=== PATIENT | female | born 1950 | race Caucasian/White ===

== ENCOUNTER → 2016-11-01 | Outpatient (CLI) | payer MEDICARE, BC ==
[~2016-11-01] MED LIST: ARANESP200 MCG/1 IM; ASPIR 8181 MG PO; CALCIUM ACETAT667 MG PO; CARDIZEM CD)(T180 MG PO; COREG25 MG PO; COZAAR25 MG PO; CRESTOR10 MG PO; DELTASONE5 MG PO; FEMARA 2.5 MG2.5 MG PO; LASIX80 MG PO; NEURONTIN100 MG PO; NORCO 5-325 MG1 TAB PO; NORCO 5-325 TA1 EACH; NORVASC5 MG PO; OXYGEN M-15 INH; PHOSLO667 MG PO; PROGRAF 1MG CAPS1 MG PO; ROCALTROL0.25 MCG PO; SODIUM BICARBO650 MG PO; SYMBICORT 16010.2 GM INH; VITAMIN D35000 UNI1 PO; ZANTAC (NON-FO150 MG PO
== END | disposition disaster alternative care site (69) ==
LOC: LGSMG 16:05
DX: N18.9 Chronic kidney disease, unspecified (principal); Z92.29 Personal history of other drug therapy

== ENCOUNTER → 2017-02-14 | Outpatient (CLI) | payer MEDICARE, BC ==
[2017-02-14 15:55] LABS: BASOPHIL % 0.4 %; EOSINOPHIL # 0.1 K/uL (0.0-0.5); EOSINOPHIL % 1.5 %; HEMATOCRIT 34.5 % (33.0-46.0); HEMOGLOBIN 11.2 g/dL (10.0-15.0); IMMATURE GRANULOCYTE % 0.2 %; LYMPHOCYTE # 1.2 K/uL (0.8-4.0); LYMPHOCYTE % 21.4 %; MCH 34.8 pg (27.0-34.0); MCHC 32.5 gm/dL (32.0-36.5); MCV 107.1 fl (83.0-98.0); MONOCYTE # 0.3 K/uL (0.0-1.0); MONOCYTE % 5.1 %; MPV 11.4 fl (9.4-12.4); NEUTROPHIL # (ANC) 3.9 K/uL (1.8-7.8); NEUTROPHIL % 71.4 %; NRBC % 0 /100WBC (0-0.00); PLATELET COUNT 117 K/uL (150-450); RBC 3.22 M/uL (3.50-5.50); RDW-CV 16.8 % (11.9-14.6); WBC 5.5 K/uL (4.0-11.0)
[2017-02-14 16:03] LABS: INR - (THERAPEUTIC) 1.01 (0.92-1.07); PROTIME 10.6 SECONDS (9.8-11.4)
[2017-02-14 16:08] LABS: ALBUMIN 3.8 gm/dL (3.5-5.0); ANION GAP 9.6 (10.0-19.0); CALCIUM 9.7 mg/dL (8.5-10.5); PHOSPHORUS 2.7 mg/dL (2.5-4.9); POTASSIUM 4.6 mMol/L (3.7-5.1)
[2017-02-14 16:10] LABS: CREATININE 5.4 mg/dL (0.5-1.1)
== END | disposition disaster alternative care site (69) ==
LOC: GOPD 02-13
PROVIDERS: Internal Medicine Nephrology
PROC: 05HM33Z Insertion of Infusion Device into Right Internal Jugular Vein, Percutaneous Approach (ICD-10-PCS; principal; 2017-02-14)
PROC: B513YZA Fluoroscopy of Right Jugular Veins using Other Contrast, Guidance (ICD-10-PCS; 2017-02-14)
DX: T82.590A Other mechanical complication of surgically created arteriovenous fistula, initial encounter (principal)
CPT/HCPCS: C1750; C1769; J1642; J1644; J2001; J2250; J3010; J3370; J7030

== ENCOUNTER → 2017-02-21 | Day surgery (SDC) | payer MEDICARE, BC ==
[~2017-02-21] VITALS: Ht 172.7 cm; Wt 63.9 kg
--- NOTE | ~2017-02-21 | OR ---
PATIENT'S NAME: GLENROY BRADSHAW [facility] AGE: 66 Y [address] ROOM: [place] [address] [place]: [facility] [place] ADMIT DATE: 02/21/2017 OR/Procedure Report DISCHARGE DATE: FAMILY PHYSICIAN: Chase Holder MD ATTENDING PHYSICIAN: BENJAMÍN MONCADA SURGEON: Benjamín Moncada MD BODY SHOP WORKER: DATE OF PROCEDURE: 02/21/2017 PREOPERATIVE DIAGNOSIS: End-stage renal disease. POSTOPERATIVE DIAGNOSIS: End-stage renal disease. PROCEDURE: Left arm radiocephalic fistula ligation, new left brachiocephalic AV fistula creation. DUMP GRADER: CHRIS Small. ANESTHESIA: General. ESTIMATED BLOOD LOSS: 5 mL. OPERATIVE FINDINGS: Good thrill and bruit in the brachiocephalic fistula. No further flow in radiocephalic fistula and strong radial and ulnar signal at the end of the case. DESCRIPTION OF PROCEDURE: The patient was brought to operating room placed supine on the operative table. Prepped and draped in a sterile manner. Preoperative time-out was performed. The patient received preoperative antibiotics. We made the incision of the risks in a transverse fashion, dissected down to find the cephalic outflow vein into the fistula. We dissected in a 360-degree fashion. We then proceeded ligated with a single Prolene tie. There was no further flow in the fistula. We closed that wound with a running 4-0 Monocryl. We then made a standard incision 2 cm proximal to the antecubital fossa dissected down the fascia, incised the fascia in a longitudinal manner. Dissected out the brachial artery. We then dissected out the cephalic vein and then transected it distally with a silk tie for ligation. We gave 5000 units of heparin. We clamped proximal and distal artery, made arteriotomy to size of 4 mm and then did a standard 6-0 Prolene anastomosis from the vein to the artery. We removed the clamps. There was excellent flow in the fistula with a good bruit which was confirmed the use of Doppler. There was a strong radial and ulnar signal at the end of the case. Heparin was given before clamping which was reversed with protamine. Hemostasis was achieved. Deep layers were closed with 2-0 and 3-0 Vicryl. Skin was closed with running 4-0 Monocryl. The patient tolerated the PATIENT'S NAME: GLENROY BRADSHAW [facility] AGE: 66 Y [address] ROOM: [place] [address] [place]: [facility] [place] ADMIT DATE: 02/21/2017 OR/Procedure Report DISCHARGE DATE: FAMILY PHYSICIAN: Chase Holder MD ATTENDING PHYSICIAN: BENJAMÍN MONCADA procedure well and transferred to recovery room and home later that day. BENJAMÍN MONCADA MD FKM/modl /[id number] d: 02/21/17 1816 t: 02/24/17 0959, OPERATIVE SUMMARY
[2017-02-21 08:31] LABS: BASOPHIL % 0.6 %; EOSINOPHIL # 0.1 K/uL (0.0-0.5); EOSINOPHIL % 2.3 %; HEMATOCRIT 37.4 % (33.0-46.0); HEMOGLOBIN 13.2 g/dL (10.0-15.0); IMMATURE GRANULOCYTE % 0.2 %; LYMPHOCYTE # 1.5 K/uL (0.8-4.0); LYMPHOCYTE % 27.7 %; MCH 37.6 pg (27.0-34.0); MCHC 35.3 gm/dL (32.0-36.5); MCV 106.6 fl (83.0-98.0); MONOCYTE # 0.5 K/uL (0.0-1.0); NEUTROPHIL # (ANC) 3.1 K/uL (1.8-7.8); NEUTROPHIL % 59.2 %; NRBC % 0 /100WBC (0-0.00); RBC 3.51 M/uL (3.50-5.50); RDW-CV 16.6 % (11.9-14.6); WBC 5.3 K/uL (4.0-11.0)
[2017-02-21 08:33] LABS: PLATELET COUNT 158 K/uL (150-450)
[2017-02-21 08:45] LABS: ALBUMIN 4.4 gm/dL (3.5-5.0); ANION GAP 11.1 (10.0-19.0); CALCIUM 9.9 mg/dL (8.5-10.5); POTASSIUM 4.1 mMol/L (3.7-5.1); TOTAL BILIRUBIN 0.6 mg/dL (0.0-1.5); TOTAL PROTEIN 8.5 g/dL (6.0-8.4)
[2017-02-21 08:48] LABS: CREATININE 5.2 mg/dL (0.5-1.1)
== END | disposition disaster alternative care site (69) ==
LOC: GPOC 02-15 14:00 → GSDC 07:32
PROVIDERS: Surgery Vascular Surgery
PROC: 05LF0ZZ Occlusion of Left Cephalic Vein, Open Approach (ICD-10-PCS; principal; 2017-02-21)
PROC: 031809D Bypass Left Brachial Artery to Upper Arm Vein with Autologous Venous Tissue, Open Approach (ICD-10-PCS; 2017-02-21)
DX: E11.22 Type 2 diabetes mellitus with diabetic chronic kidney disease (principal); I12.0 Hypertensive chronic kidney disease with stage 5 chronic kidney disease or end stage renal disease; N18.6 End stage renal disease; M19.90 Unspecified osteoarthritis, unspecified site; K21.9 Gastro-esophageal reflux disease without esophagitis; F41.9 Anxiety disorder, unspecified; D64.9 Anemia, unspecified; Z94.83 Pancreas transplant status; Z85.038 Personal history of other malignant neoplasm of large intestine; Z85.3 Personal history of malignant neoplasm of breast; Z85.828 Personal history of other malignant neoplasm of skin; Z98.41 Cataract extraction status, right eye; Z98.42 Cataract extraction status, left eye; Z98.890 Other specified postprocedural states; Z79.82 Long term (current) use of aspirin; Z79.899 Other long term (current) drug therapy; Z88.5 Allergy status to narcotic agent; Z91.011 Allergy to milk products
CPT/HCPCS: J0690; J1644; J2001; J2720; J3010; J7030

== ENCOUNTER → 2017-02-27 | Outpatient (CLI) | payer MEDICARE, BC ==
--- NOTE | ~2017-02-27 | ENPV ---
Carotid Duplex Study Demographics Patient Name GLENROY BRADSHAW Date of Study 02/27/2017 Patient Number [id number] Gender Female Date of 1950 Age 66 Visit Number [id number] Height Accession Number [id number] Weight Room Number BSA BMI Referring chantal Chase Butts MD Physician Physician Physician Ordering Physician dede Licona MD Felt Hooker Arden King BS, RT Conclusions Summary The right internal carotid artery has moderate, 40-59%, plaque and stenosis. The right vertebral artery is present with antegrade flow. The left internal carotid artery has moderate, 40-59%, plaque and stenosis. The left vertebral artery is present with antegrade flow. Heterogenous calcific plaque at the bulb, proximal ICA, proximal ECA, and CCA arteries bilaterally. Procedure Type of Study: Cerebral:Carotid, Carotid Doppler Bilateral. Indications for Study:Carotid Bruit. Additional Indications:falls Patient Status:Routine. Study Location:Vascular Lab. Technical Quality:Adequate visualization. Velocities are measured in cm/s ; Diameters are measured in cm Carotid Right Measurements Carotid Left Measurements + +--------+--------+ + + + +--------+ --------+ + + !Location !PSV !EDV !Angle !%Stenosis ! !Location !PSV ! EDV !Angle !%Stenosis ! + +--------+--------+ + + + +--------+ --------+ + + !Prox CCA !105 !8 !60 ! ! !Prox CCA !138 ! 11 !60 ! ! + +--------+--------+ + + + +--------+ --------+ + + !Dist CCA !89 !9 !60 ! ! !Dist CCA !137 ! 11 !60 ! ! + +--------+--------+ + + + +--------+ --------+ + + !Prox ICA !130 !14 !60 ! ! !Prox ICA !87 ! 8 !60 ! ! + +--------+--------+ + + + +--------+ --------+ + + !Dist ICA !114 !24 !60 ! ! !Dist ICA !118 ! 21 !60 ! ! + +--------+--------+ + + + +--------+ --------+ + + !Prox ECA !262 ! !60 ! ! !Prox ECA !157 ! !60 ! ! + +--------+--------+ + + + +--------+ --------+ + + !Vertebral !85 ! !60 ! ! !Vertebral !60 ! !60 ! ! + +--------+--------+ + + + +--------+ --------+ + + !Subclavian !174 ! !60 ! ! !Subclavian !347 ! !60 ! ! + +--------+--------+ + + + +--------+ --------+ + + - There is antegrade vertebral flow noted on the right side. - There is antegrade verte bral flow noted on the left side. - Add'l Measurements:ICAPSV/CCAPSV 1.24.ICAEDV/CCAEDV 3.1. - Add'l Measurements:ICAPS V/CCAPSV 0.86.ICAEDV/CCAEDV 1.98. Signature dtt: JAYSHREE BHAT dtd: 02/27/17 1054 Physician Self Edit
== END | disposition disaster alternative care site (69) ==
LOC: GCAR 10:50
DX: N18.6 End stage renal disease (principal); R09.89 Other specified symptoms and signs involving the circulatory and respiratory systems; R29.6 Repeated falls; I65.23 Occlusion and stenosis of bilateral carotid arteries

== ENCOUNTER → 2017-05-03 | Outpatient (CLI) | payer MEDICARE, BC | END | disposition disaster alternative care site (69) | LOC: GRAD 12:58 | DX: Z49.01 Encounter for fitting and adjustment of extracorporeal dialysis catheter (principal) ==